=== PATIENT | female | born 1970 | race Caucasian/White ===

== ENCOUNTER 2019-09-03 09:33 | Emergency (ER) | payer OTHER ==
[~2019-09-03] VITALS: Ht 157.5 cm; Wt 59.0 kg
== END 2019-09-03 10:47 | disposition home or self-care (01) ==
LOC: ER 09:33
DX: S61.223A Laceration with foreign body of left middle finger without damage to nail, initial encounter (principal); W26.8XXA Contact with other sharp object(s), not elsewhere classified, initial encounter; Y93.89 Activity, other specified; Y92.098 Other place in other non-institutional residence as the place of occurrence of the external cause; Y99.8 Other external cause status